=== PATIENT | male | born 1995 | race Caucasian/White ===

== ENCOUNTER 2023-05-15 09:59 | Emergency (ER) | payer MEDICAID ==
[~2023-05-15] VITALS: Ht 177.8 cm; Wt 99.0 kg
[2023-05-15 10:10] VITALS: BP 127/80; PULSE 111; RESP 20; O2SAT 97
[2023-05-15] MEDS ORDERED: ACETAMINOPHEN 325MG TABLET PO ONE (12:30)
[2023-05-15] MEDS ORDERED: LIDOCAINE HCL/PF 1% 10 MG/ML 5ML VIAL INFIL ONE (12:45)
[2023-05-15 13:14] VITALS: TEMP 98.2
[2023-05-15] MEDS ORDERED: IBUP-2028 PO (13:35)
== END 2023-05-15 14:42 | disposition home or self-care (01) ==
LOC: ER 09:59
DX: S01.81XA Laceration without foreign body of other part of head, initial encounter (principal); Y08.89XA Assault by other specified means, initial encounter; Y93.89 Activity, other specified; Y92.89 Other specified places as the place of occurrence of the external cause; Y99.8 Other external cause status
CPT/HCPCS: 70450; 70486; 72125; 12014; 99284; J3490; Z7610 ×2